=== PATIENT | female | born 1985 | race Asian ===

== ENCOUNTER 2017-07-01 03:06 | Emergency (ER) | payer OTHER ==
[~2017-07-01] VITALS: Ht 160 cm; Wt 76.2 kg
[~2017-07-01 03:06] MED LIST: CIPRO500 MG PO
[2017-07-01 03:43] VITALS: BP 101/63; TEMP 98.5
== END 2017-07-01 03:44 | disposition home or self-care (01) ==
LOC: ED 03:06
DX: M25.571 Pain in right ankle and joints of right foot (principal)
CPT/HCPCS: 99281

== ENCOUNTER 2020-12-02 11:09 | Emergency (ER) | payer BC, OTHER ==
[~2020-12-02] VITALS: Ht 170.2 cm; Wt 81.6 kg
[2020-12-02 11:18] VITALS: TEMP 97.6
[2020-12-02 12:55] VITALS: BP 102/58
== END 2020-12-02 12:55 | disposition home or self-care (01) ==
LOC: ED 11:09
DX: N30.80 Other cystitis without hematuria (principal); Z20.2 Contact with and (suspected) exposure to infections with a predominantly sexual mode of transmission
CPT/HCPCS: 81000; 81025; 87490; 87590; 96372; 99283; J0696

== ENCOUNTER 2022-12-09 10:01 | Outpatient (CLI) | payer OTHER | END 2022-12-09 19:16 | disposition home or self-care (01) | LOC: US 10:01 | PROVIDERS: ATTEND Nurse Practitioner Primary Care | DX: R22.0 Localized swelling, mass and lump, head (principal) ==